=== PATIENT | female | born 1995 | race Caucasian/White ===

== ENCOUNTER 2018-06-12 15:16 | Emergency (ER) | payer OTHER ==
[~2018-06-12] VITALS: Ht 157.5 cm; Wt 77.1 kg
[2018-06-12 15:37] VITALS: BP 141/68
--- NOTE | 2018-06-12 15:47 | NUR ---
PATIENT IS A 22 YO FEMALE BIB SELF FOR RIGHT FOOT PAIN AND SWELLING, AWAKE AND ALERT HAS INSECT BITE TO ANTERIOR ANKLE WITH REDNESS AND SWELLING TO FOOT. ABLE TO AMBULATE. NO ACUTE DISTRESS.
== END 2018-06-12 15:48 | disposition home or self-care (01) ==
LOC: MED 15:16
DX: S90.861A Insect bite (nonvenomous), right foot, initial encounter (principal); L08.9 Local infection of the skin and subcutaneous tissue, unspecified; L03.115 Cellulitis of right lower limb; R03.0 Elevated blood-pressure reading, without diagnosis of hypertension
CPT/HCPCS: 99283

== ENCOUNTER 2019-12-21 13:02 | Emergency (ER) | payer OTHER ==
[~2019-12-21] VITALS: Ht 153.7 cm; Wt 78.7 kg
[2019-12-21 13:51] VITALS: BP 128/65
--- NOTE | 2019-12-21 14:00 | NUR ---
TRIAGE COMPLETE. VSS. RETURNED TO LOBBY AWAITNG BED IN ED.
--- NOTE | 2019-12-21 15:30 | NUR ---
24/F PRESENTS TO ED WITH FAMILY, C/O FEELING POSSIBLE FOREIGN BODY/GLASS ON PLANTAR SURFACE OF L 5TH TOE, S/P STEPPING ON GLASS 3 DAYS AGO, APPROX 0.6CM OPEN SORE, +CMS. PT AWAKE AND ALERT, SKIN NORMAL COLOR WARM AND DRY, RR EVEN AND UNLABORED. DENIES MED HX OR RX.
[2019-12-21] MEDS ORDERED: ACETAMINOPHEN 325 MG TAB PO ONE (15:50)
[2019-12-21] MEDS ORDERED: BACITRACIN OINT 500 UNITS/GM PKT TP ONE (15:50)
[2019-12-21] MEDS ORDERED: ACETAMINOPHEN 325 MG TAB ONE (16:05)
--- NOTE | 2019-12-21 16:30 | NUR ---
Patient discharged with v/s stable. Written and verbal after care instructions given and explained. Patient alert, oriented and verbalized understanding of instructions. Ambulatory with steady gait. All questions addressed prior to discharge. ID band removed. Patient advised to follow up with PMD. Rx of ACETAMINOPHEN, BACITRACIN, KEFLEX given. Patient educated on indication of medication including possible reaction and side effects. Opportunity to ask questions provided and answered.
[2019-12-21 16:36] VITALS: BP 128/65
== END 2019-12-21 16:30 | disposition home or self-care (01) ==
LOC: MED 13:02
DX: S91.135A Puncture wound without foreign body of left lesser toe(s) without damage to nail, initial encounter (principal); W22.8XXA Striking against or struck by other objects, initial encounter; Y93.89 Activity, other specified; Y92.89 Other specified places as the place of occurrence of the external cause; Y99.8 Other external cause status
CPT/HCPCS: 73630; 90471; 90715; 99283